=== PATIENT | male | born 1990 | race Caucasian/White ===

== ENCOUNTER 2017-10-26 17:09 | Emergency (ER) | payer BC ==
[2017-10-26] MEDS: AUGMENTIN 875 MG TAB PO (20:52)
[2017-10-26] MEDS: NORCO 5/325MG TABLET (BULK FOR ED) PO (20:52)
== END 2017-10-26 20:56 | disposition home or self-care (01) ==
LOC: M ED 17:09
DX: K04.7 Periapical abscess without sinus (principal); R22.0 Localized swelling, mass and lump, head; K02.9 Dental caries, unspecified; Z87.891 Personal history of nicotine dependence
CPT/HCPCS: 99284